=== PATIENT | male | born 1960 | race Caucasian/White ===

== ENCOUNTER 2018-07-26 08:28 | Day surgery (SDC) | payer BC ==
[~2018-07-26 08:28] MED LIST: ACETAMINOPHEN 1,000 MG/100 ML BTL IVPB ONE
[2018-07-26] MEDS ORDERED: DEXAMETHASONE 4 MG/ML 1ML VIAL IVP ONE (08:29)
[2018-07-26] MEDS ORDERED: PROPOFOL 10 MG/ML VIAL IV ONE (08:29)
[2018-07-26] MEDS ORDERED: SEVOFLURANE 250 ML INH ONE (08:29)
[2018-07-26] MEDS ORDERED: LIDOCAINE 2% MDV (20MG/ML) 20ML VIAL IV ONE (08:29)
[2018-07-26] MEDS ORDERED: KETOROLAC 30 MG/ML VIAL IVP ONE (08:29)
[2018-07-26] MEDS ORDERED: MIDAZOLAM HCL 2MG/2ML VIAL IV ONE (08:29)
[2018-07-26] MEDS ORDERED: FENTANYL PF 100MCG/2ML VIAL IV ONE ×2 (08:29)
[2018-07-26] MEDS ORDERED: ONDANSETRON HCL IV 4 MG/2 ML VIAL IVP ONE (08:29)
[2018-07-26] MEDS ORDERED: RINGERS SOLUTION,LACTATED 1,000 ML IV ONE ×2 (09:05→10:40)
[2018-07-26] MEDS ORDERED: BUPIVACAINE 0.25% W/EPI MPF 30ML VIAL SQ ONE (10:38)
[2018-07-26] MEDS ORDERED: IBUPROFEN 400 MG TABLET PO ONE (11:55)
--- NOTE | 2018-07-28 08:40 | Operative Note ---
DATE OF SURGERY: SURGEON: Kedar Mariee DO PREOPERATIVE DIAGNOSIS: Torn medial and lateral meniscus of the left knee. 2. Chondromalacia of the right knee. POSTOPERATIVE DIAGNOSES: 1. Torn medial and lateral meniscus of the left knee. 2. Chondromalacia of the medial femoral condyle, left knee. 3. Synovitis of the left knee (2 compartments). OPERATION: 1. Arthroscopic partial medial and lateral meniscectomy, left knee. 2. Arthroscopic partial synovectomy, left knee (2 compartments). 3. Arthroscopic chondroplasty of the medial femoral condyle, left knee. DESCRIPTION OF PROCEDURE: This 58-year-old male was taken to the operating room and placed in the supine position on the operating room table. A general anesthetic was administered and the left lower extremity was elevated, exsanguinated, and the tourniquet inflated to 300 mmHg. Arthroscopic knee rice applied. Left knee prepped with Hibiclens and draped in the usual sterile fashion. An inferolateral portal was established for the 4 mm arthroscope, and initial evaluation of the joint demonstrated normal appearance of the patellofemoral articulation. The medial compartment was entered, and a large flap tear of the posterior horn of the medial meniscus was present as well as significant grade 2 chondromalacia of the entire weightbearing surface of the medial femoral condyle. Chondroplasty was performed to stabilize the articular cartilage there. We resected the large flap of the medial meniscus leaving a rim of only a couple of millimeters. This was involving in the entire posterior horn. This was smoothed and tapered to a stable rim which was re-probed and confirmed to be stable. The intracondylar notch was examined and found to be normal. The lateral compartment was entered, and a complex horizontal cleavage tear of the lateral meniscus was present. This tear extended from the mid portion of the posterior horn around to the body of the meniscus to approximately the 4-o'clock position. Utilizing the basket forceps and rotating shaver, we resected to the apex of the tear and then tapered in each direction. The remaining rim of meniscus was stable. No articular cartilage defects of the lateral compartment were present. The joint was then copiously irrigated and suctioned. All chips of meniscal tissue removed from the joint. There was rather extensive synovitis both in the medial and lateral compartments, and this was debrided with a rotating shaver. The joint was suctioned. The instruments were removed. The portals infiltrated with 0.25% Marcaine with epinephrine. Sterile dressings applied, tourniquet and knee rice released, and the patient taken to the recovery room in satisfactory condition. GROSS PATHOLOGY: This patient had tears of both the medial and lateral meniscus as described above and grade 2 chondromalacia of the entire weightbearing surface of the medial femoral condyle with synovitis present in both the medial and lateral compartments. CC: DO FERMIN Timmons
== END 2018-07-26 12:15 | disposition home or self-care (01) ==
LOC: SUR 08:28
PROVIDERS: ATTEND Orthopaedic Surgery
DX: S83.242A Other tear of medial meniscus, current injury, left knee, initial encounter (principal); S83.272A Complex tear of lateral meniscus, current injury, left knee, initial encounter; M67.52 Plica syndrome, left knee; M94.262 Chondromalacia, left knee; I10 Essential (primary) hypertension; F98.8 Other specified behavioral and emotional disorders with onset usually occurring in childhood and adolescence; G47.33 Obstructive sleep apnea (adult) (pediatric)
CPT/HCPCS: 29880; 29876; 01400; J1885; J2405; J3010; J7120